=== PATIENT | male | born 1995 | race Caucasian/White ===

== ENCOUNTER → 2019-02-10 11:06 | Outpatient (CLI) | payer OTHER, SELFPAY ==
--- NOTE | 2019-02-10 11:11 | DI.RAD.S_ITS ---
PROCEDURE: XR THORACIC SPINE 3V INDICATIONS: pain to lower thoracic/upper lumbar, r/o bony abnormality TECHNIQUE: 3 views of the thoracic spine were acquired. COMPARISON: None. FINDINGS: Bones: No fractures or dislocations. No suspicious bony lesions. 12 pairs of ribs are noted, and appear intact where visualized. Soft tissues: No paravertebral stripe thickening. IMPRESSION: No fracture. No osseous lesion. If symptoms and/or clinical suspicion for pathology persists, evaluation with MRI may be helpful for further assessment. Dictated by: Shannon Vasquez MD, PhD on 02/10/2019 at 11:50 Approved by: Shannon Vasquez MD, PhD on 02/10/2019 at 11:50
--- NOTE | 2019-02-10 11:11 | DI.RAD.S_ITS ---
PROCEDURE: XR LUMBAR SPINE 2-3V INDICATIONS: pain to lower thoracic/upper lumbar, r/o bony abnormality TECHNIQUE: 2 views of the lumbar spine were acquired. COMPARISON: None. FINDINGS: Bones: 5 [id number] vertebrae are present. There is normal bony alignment. There is approximately 14? of convex left lumbar spine scoliosis. No vertebral body compression fractures. No suspicious bony lesions. Soft tissues: Overlying bowel gas pattern is normal. No suspicious soft tissue calcifications. IMPRESSION: Convex left scoliosis. Dictated by: Shannon Vasquez MD, PhD on 02/10/2019 at 11:50 Approved by: Shannon Vasquez MD, PhD on 02/10/2019 at 11:51
[2019-02-10 12:41] LABS: Alanine Aminotransferase 18 IU/L (<50); Albumin 4.9 g/dL (3.5-5.0); Albumin Globulin Ratio 1.7 (1.0-2.8); Alkaline Phosphatase 71 U/L (38-126); Aspartate Aminotransferase 34 IU/L (17-59); BUN Creatinine Ratio 13.8 (6-22); Bilirubin Total 0.5 mg/dL (0.2-1.3); Blood Urea Nitrogen 11 mg/dL (9-20); Calcium 9.6 mg/dL (8.4-10.2); Carbon Dioxide 28 mmol/L (22-32); Chloride 105 mmol/L (98-107); Estimated Glomerular Filt Rate > 60.0 mL/min (>60); Globulin 2.9 g/dL (1.7-4.1); Glucose 95 mg/dL (70-100); HEMOLYSIS < 15 (0-50); Potassium 4.2 mmol/L (3.4-5.1); Sodium 141 mmol/L (137-145); Total Protein 7.8 g/dL (6.3-8.2)
[2019-02-10 13:04] LABS: Urine N gonorrhoeae NOT DETECTED
[2019-02-10 13:12] LABS: Urine Chlamydia NOT DETECTED
== END ==
PROVIDERS: Visit Provider Physician Assistant
DX: M54.6 Pain in thoracic spine (principal); M54.5 Low back pain; M41.86 Other forms of scoliosis, lumbar region; I10 Essential (primary) hypertension; R30.0 Dysuria
CPT/HCPCS: 36415; 72072; 72100; 80053; 87491; 87591

== ENCOUNTER 2019-05-19 09:52 | Emergency (ER) | payer OTHER, SELFPAY ==
[2019-05-19 10:00] VITALS: BMI 25.0
--- NOTE | 2019-05-19 10:10 | DI.RAD.S_ITS ---
PROCEDURE: XR CHEST 2V INDICATIONS: sharp chest pain TECHNIQUE: 2 views of the chest were acquired. COMPARISON: None. FINDINGS: Surgical changes and devices: None. Lungs and pleura: Lungs are clear. No pleural effusions or pneumothorax. Mediastinum: Mediastinal contours are normal. Heart size is normal. Bones and chest wall: No suspicious bony abnormalities. Soft tissues appear unremarkable. IMPRESSION: No acute cardiopulmonary pathology. Dictated by: Gerardo Julian M.D. on 05/19/2019 at 10:44 Approved by: Gerardo Julian M.D. on 05/19/2019 at 10:45
[2019-05-19 11:08] LABS: Add Manual Diff / Slide Review NO; Basophils Absolute Auto 0 /uL (0-100); Basophils Percent Auto 0.9 % (0-2); Eosinophils Absolute Auto 300 /uL (0-450); Eosinophils Percent Auto 7.1 % (2-4); Hemoglobin 16.2 g/dL (13.5-17.5); Lymphocytes Absolute Auto 1600 /uL (1100-4500); Lymphocytes Percent Auto 33.6 % (25-40); Mean Corpuscular HGB Conc 34.5 % (30-36); Mean Corpuscular Hemoglobin 30.5 PG (26-34); Mean Corpuscular Volume 88.4 fL (80-100); Monocytes Absolute Auto 400 /uL (0-900); Monocytes Percent Auto 9.2 % (3-14); Neutrophils Absolute Auto 2400 /uL (1500-7000); Neutrophils Percent Auto 49.2 % (50-75); Platelet Count 202 X10^3/uL (150-400); Red Blood Cell Count 5.32 X10^6/uL (4.5-5.9); Red Cell Distribution Width 12.5 % (11.6-14.8); White Blood Cell Count 4.9 X10^3/uL (4.5-11.0)
[2019-05-19 11:20] LABS: Creatine Kinase 79 U/L (55-170)
[2019-05-19 11:24] LABS: BUN Creatinine Ratio 16.3 (6-22); Blood Urea Nitrogen 13 mg/dL (9-20); Calcium 10.2 mg/dL (8.4-10.2); Carbon Dioxide 27 mmol/L (22-32); Chloride 103 mmol/L (98-107); Estimated Glomerular Filt Rate > 60.0 mL/min (>60); Glucose 98 mg/dL (70-100); HEMOLYSIS 16 (0-50); Potassium 4.7 mmol/L (3.4-5.1); Sodium 141 mmol/L (137-145)
[2019-05-19 11:25] LABS: Erythrocyte Sedimentation Rate 1 MM/HR (0-15)
[2019-05-19 11:26] LABS: C-Reactive Protein Quant < 0.5 mg/dL (<1.0)
[2019-05-19 11:30] VITALS: BP 120/70; PULSE 87; RESP 18; O2SAT 97
[2019-05-19 11:32] LABS: Troponin I < 0.012 ng/mL (0.01-0.034)
--- NOTE | 2019-05-19 18:31 | ED_ITS ---
HPI - Chest Pain General Chief Complaint: Chest Pain Stated Complaint: woke up with sharp chest pain Time Seen by Provider: 05/19/19 10:07 Source: patient Mode of arrival: Ambulatory Limitations: no limitations History of Present Illness HPI narrative: 24-year-old male daily smoker with history of hypertension prese nts with a chief complaint of waking to some episodes of very brief left-sided sharp and stabbing chest pain that last about 10 seconds and go away without any palliation. Patient denies any runny nose, sore throat or cough. He denies any shortness of breath. He denies any exertional exacerbation or other symptoms such as dizziness, weakness, lightheadedness, nausea, vomiting or diaphoresis. He denies any recent travel or history of blood clot. He is currently pain-free MD complaint: chest pain Onset (ago): hour(s) Duration: intermittent Onset: during rest Pain location: left chest Severity: mild Quality: sharp Pain radiation: none Relieving factors: nothing Exacerbating factors: nothing Treatments prior to arrival chest pain: none Related Data Home Medications Medication Instructions Recorded Confirmed ramipril 2.5 mg PO DAILY 05/19/19 Allergies Allergy/AdvReac Type Severity Reaction Status Date / Time acetaminophen [From Vicodin] AdvReac Intermediate nausea and Verified 05/19/19 10:00 vomiting hydrocodone [From Vicodin] AdvReac Intermediate nausea and Verified 05/19/19 10:00 vomiting Review of Systems Constitutional Constitutional: Denies chills, Denies fatigue, Denies fever(s), Denies frequent falls, Denies lethargy and Denies weakness Eyes Eyes: Denies change in vision, Denies eye discharge, Denies irritation and Denies loss of vision ENT Ears, Nose, Mouth, and Throat: Denies change in voice, Denies dizziness, Denies neck pain, Denies sore throat and Denies throat swelling Cardiovascular Cardiovascular: Reports chest pain, Denies irregular heart rhythm, Denies lightheadedness, Denies palpitations, Denies dyspnea, Denies dyspnea on exertion and Denies orthopnea Respiratory Respiratory: Denies cough, Denies dyspnea, Denies dyspnea on exertion and Denies wheezing Gastrointestinal Gastrointestinal: Denies abdominal pain, Denies change in bowel habits, Denies diarrhea, Denies nausea and Denies vomiting Genitourinary Genitourinary: Denies hematuria, Denies flank pain, Denies urinary incontinence and Denies urinary urgency Musculoskeletal Musculoskeletal: Denies back pain, Denies muscle weakness, Denies neck pain, Denies numbness and Denies tingling Integumentary/Breasts Skin/Breast: Denies pruritus, Denies erythema, Denies rash and Denies wounds Neurologic Neurologic: Denies behavioral changes, Denies confusion, Denies dizziness, Denies frequent falls, Denies loss of vision, Denies numbness, Denies tingling and Denies weakness Psychiatric Psychiatric: Denies anxiety, Denies behavioral changes, Denies confusion, Denies depression, Denies homicidal ideation and Denies suicidal ideation Endocrine Endocrine: Denies fatigue, Denies flushing and Denies palpitations Hematologic/Lymphatic Hematologic/Lymphatic: Denies easy bruising Allergic/Immunologic Allergic/Immunologic: Denies urticaria, Denies throat swelling and Denies wheezing Patient History Social History Smoking Status: Current every day smoker Smoking Status: Current every day smoker Exam Narrative Exam Narrative: GENERAL: [24] year old patient appears stated age. Well- nourished, well-developed patient, in mild distress. HEAD: Atraumatic. Normocephalic. EYES: Pupils equal round and reactive. Extraocular motions intact. No scleral icterus. No injection or drainage. ENT: Nose without bleeding, purulent drainage. Throat without erythema, tonsillar hypertrophy or exudate. Airway patent. NECK: Trachea midline. Non tender CARDIOVASCULAR: Regular rate and rhythm without murmurs, gallops, or rubs. RESPIRATORY: Clear to auscultation. Breath sounds equal bilaterally. No wheezes, rales, or rhonchi. GASTROINTESTINAL: Abdomen soft, non-tender, nondistended. EXTREMITIES: No edema or joint tenderness. BACK: Nontender without deformity or crepitance. No flank tenderness. NEURO: AOx3. SKIN: No rash or erythema of visible areas Initial Vital Signs Initial Vital Signs: Vital Signs Pulse Rate 87 05/19/19 11:30 Respiratory Rate 18 05/19/19 11:30 Blood Pressure 120/70 05/19/19 11:30 Pulse Oximetry 97 05/19/19 11:30 Course Orders Ordered: ED Orders 05/19/19 10:04 EKG-12 Lead Routine 05/19/19 10:10 XR chest 2V Stat 05/19/19 11:00 Basic Metabolic Panel Stat C-Reactive Protein Quant Stat Complete Blood Count AUTO DIFF Stat Erythrocyte Sedimentation Rate Stat Troponin & CK Cardiac Panel Stat Vital Signs Vital signs: Vital Signs - 8 hr 05/19/19 11:30 Pulse Rate 87 Respiratory Rate 18 Blood Pressure [Right Arm] 120/70 Pulse Oximetry 97 MDM - Chest Pain Lab Data Result diagrams: 05/19/19 11:00 05/19/19 11:00 Labs: Lab Results 05/19/19 05/19/19 05/19/19 Range/Units 11:00 11:00 11:00 WBC 4.9 (4.5-11.0) X10^3/uL RBC 5.32 (4.5-5.9) X10^6/uL Hgb 16.2 (13.5-17.5) g/dL Hct 47.0 (41-53) % MCV 88.4 (80-100) fL MCH 30.5 (26-34) PG MCHC 34.5 (30-36) % RDW 12.5 (11.6-14.8) % Plt Count 202 (150-400) X10^3/uL Neut % (Auto) 49.2 L (50-75) % Lymph % (Auto) 33.6 (25-40) % Brooks % (Auto) 9.2 (3-14) % Eos % (Auto) 7.1 H (2-4) % Baso % (Auto) 0.9 (0-2) % Neut # (Auto) 2400 (5121-2097) /uL Lymph # (Auto) 1600 (7999-0436) /uL Brooks # (Auto) 400 (0-900) /uL Eos # (Auto) 300 (0-450) /uL Baso # (Auto) 0 (0-100) /uL ESR 1 (0-15) MM/HR Sodium 141 (137-145) mmol/L Potassium 4.7 (3.4-5.1) mmol/L Chloride 103 (98-107) mmol/L Carbon Dioxide 27 (22-32) mmol/L BUN 13 (9-20) mg/dL Creatinine 0.80 (0.66-1.25) mg/dL Estimated GFR > 60.0 (>60) mL/min BUN/Creatinine Ratio 16.3 (6-22) Glucose 98 (70-100) mg/dL Calcium 10.2 (8.4-10.2) mg/dL Total Creatine Kinase 79 (55-170) U/L CK-MB (CK-2) TNP CK-MB (CK-2) Rel Index TNP Troponin I < 0.012 (0.01-0.034) ng/mL C-Reactive Protein < 0.5 (<1.0) mg/dL Imaging Data Chest x-ray: Radiologist's Impression: [address] [address] XRay Report Signed Patient: Dk Rabago JMR#: [id number] : 1995Acct:[id number] Age/Sex: te of Service: 05/19/19 Loc: ED Accession Number: [id number] Procedure: XR chest 2V Ordering Provider: Billy Negrete D.O. PROCEDURE: XR CHEST 2V INDICATIONS: sharp chest pain TECHNIQUE: 2 views of the chest were acquired. COMPARISON: None. FINDINGS: Surgical changes and devices: None. Lungs and pleura: Lungs are clear. No pleural effusions or pneumothorax. Mediastinum: Mediastinal contours are normal. Heart size is normal. Bones and chest wall: No suspicious bony abnormalities. Soft tissues appear unremarkable. IMPRESSION: No acute cardiopulmonary pathology. Dictated by: Gerardo Julian M.D. on 05/19/2019 at 10:44 Approved by: Gerardo Julian M.D. on 05/19/2019 at 10:45 [facility] Narrative Medical decision making narrative: Multiple causes of chest pain considered including KS, PE, pneumothorax, pneumonia, aortic dissection, and pleurisy. Patient reports no radiation, no diaphoresis, no provocation with exertion, and no vomiting Discharge Plan Departure Patient Disposition: Home Clinical Impression: Atypical chest pain Discharge Date/Time: 05/19/19 12:16 Instructions: DI for Atypical Chest Pain Activity Restrictions/Additional Instructions: *You have been diagnosed with [atypical chest pain] *What to do: *Take medications as directed *Follow up with your primary care provider in 2-3 days, call for an appointment. Let them know you were seen in the Emergency Department and that we ask that you be seen in follow up *Return to ER if you should have any new, worsening or concerning symptoms Prescriptions: No Action ramipril 2.5 mg capsule 2.5 mg PO DAILY RF: 0
== END 2019-05-19 12:16 | disposition home or self-care (01) ==
PROVIDERS: Emergency Provider Emergency Medicine
DX: R07.89 Other chest pain (principal)
CPT/HCPCS: 36415; 71046; 80048; 82550; 84484; 85025; 85651; 86140; 93005; 99284; 99285

== ENCOUNTER → 2020-06-13 09:54 | Outpatient (CLI) | payer OTHER, SELFPAY ==
[2020-06-13 10:22] LABS: COVID19 -Nasal RAPID Negative (Negative)
== END ==
PROVIDERS: Visit Provider Student in an Organized Health Care Education/Training Program
DX: Z20.822 Contact with and (suspected) exposure to COVID-19 (principal)
CPT/HCPCS: 87635

== ENCOUNTER → 2020-11-06 18:20 | Outpatient (CLI) | payer OTHER, SELFPAY ==
[2020-11-06 18:55] LABS: COVID19 -Nasal RAPID Negative (Negative)
== END ==
PROVIDERS: Visit Provider Physician Assistant
DX: Z20.822 Contact with and (suspected) exposure to COVID-19 (principal); R05 Cough; R51.9 Headache, unspecified
CPT/HCPCS: 87635

== ENCOUNTER 2024-12-20 11:17 | Emergency (ER) | payer OTHER, SELFPAY ==
[2024-12-20 11:40] VITALS: BP 170/83; PULSE 90; RESP 16; TEMP 37.3; O2SAT 98; BMI 29.5
--- NOTE | 2024-12-20 12:33 | ED.SKABFB ---
HPI - Skin/Abscess/Foreign Bdy General Chief complaint: Skin/Abscess/Foreign Body Stated complaint: wic, poss hernia,gi pain,burping Time Seen by Provider: 12/20/24 11:45 Source: patient Mode of arrival: Ambulatory Limitations: no limitations History of Present Illness HPI narrative: Patient complains of periumbilical pain, possible hernia. Sent here from walk-in clinic. A week ago he was trying to do a lift of 400 lb and felt pain in his periumbilical area. However recently he was trying to move some washing machines and felt the umbilical area get larger. No prior history of abdominal surgical history no prior history of hernias. Patient states he exercises and does lifts routinely but however last week he did not use a weight belt Related Data Home Medications ?Medication ?Instructions ?Recorded ?Confirmed escitalopram oxalate 10 mg tablet 10 mg PO DAILY 12/20/24 12/20/24 (Lexapro) ramipril 2.5 mg capsule 5 mg PO DAILY 12/20/24 12/20/24 Allergies Allergy/AdvReac Type Severity Reaction Status Date / Time acetaminophen (From Vicodin) AdvReac Intermediate nausea and Verified 12/20/24 11:04 vomiting hydrocodone (From Vicodin) AdvReac Intermediate nausea and Verified 12/20/24 11:04 vomiting Review of Systems Review of Systems Narrative: GENERAL: Negative chills, fatigue, malaise, fever, sweats. HEENT: Negative sinus pain, ear pain, sore throat RESPIRATORY: Negative dyspnea, cough CARDIOVASCULAR: Negative chest pain, palpitations GASTROINTESTINAL: Negative vomiting, nausea, positive abdominal pain : Negative dysuria, frequency, hematuria MUSCULOSKELETAL: Negative muscle or bony pain SKIN: Negative rash, skin lesions NEUROLOGIC: Negative weakness, numbness ROS Unobtainable: All systems reviewed & are unremarkable except as noted in HPI and below Patient History Social History Smoking Status: Former smoker Smoking Status: Former smoker Exam Narrative Exam Narrative: GENERAL: in no distress, not toxic not dyspneic HEAD: Normocephalic. EYES: Pupils equal round ENT: Mucous membranes moist. NECK: Trachea midline. CARDIOVASCULAR: Regular rate and rhythm RESPIRATORY: Clear to auscultation. Breath sounds equal bilaterally. No wheezes, rales, or rhonchi. GASTROINTESTINAL: Abdomen soft, mild periumbilical tenderness but no palpable hernia on sitting up from supine position. No skin discoloration. Bowel sounds are present. No peritoneal signs no guarding or rebound. EXTREMITIES: No gross deformities. BACK: No flank tenderness. NEURO: AOx4. Clear speech SKIN: Warm and dry PSYCH: Not anxious, is cooperative Initial Vital Signs Initial Vital Signs: Vital Signs Temperature 99.1 F 12/20/24 11:40 Pulse Rate 90 12/20/24 11:40 Respiratory Rate 16 12/20/24 11:40 Blood Pressure 170/83 H 12/20/24 11:40 Pulse Oximetry 98 12/20/24 11:40 Oxygen Delivery Method Room Air 12/20/24 11:40 Course Orders Ordered: ED Orders 12/20/24 12:42 CT abdomen pelvis w con Stat 12/20/24 13:45 Complete Blood Count AUTO DIFF Stat Comprehensive Metabolic Panel Stat Discontinued Medications Sodium Chloride (Normal Saline 0.9%) 500 mls @ 1,000 mls/hr IV BOLUS ONE Stop: 12/20/24 13:11 Last Infusion: 12/20/24 14:02 Dose: Infused Documented By: Admin: 12/20/24 13:16 Dose: 1,000 mls/hr Documented By: BETSY Ketorolac Tromethamine (Ketorolac 30 Mg/Ml Vial) 15 mg IV NOW ONE Stop: 12/20/24 12:43 Last Admin: 12/20/24 13:16 Dose: 15 mg Documented By: BETSY Vital Signs Vital signs: Vital Signs - 8 hr 12/20/24 13:13 12/20/24 13:15 12/20/24 13:15 Pulse Rate 78 74 Blood Pressure 140/90 Pulse Oximetry 97 98 12/20/24 13:30 12/20/24 13:30 12/20/24 14:00 Pulse Rate 69 Blood Pressure 130/68 126/75 Pulse Oximetry 98 12/20/24 14:00 Pulse Rate 65 Blood Pressure Pulse Oximetry 98 MDM - Skin/Abscess/Foreign Bdy Lab Data 12/20/24 13:45 12/20/24 13:45 Labs: Lab Results 12/20/24 Range/Units 13:45 WBC 5.3 (4.5-11.0) X10^3/uL RBC 5.03 (4.5-5.9) X10^6/uL Hgb 15.0 (13.5-17.5) g/dL Hct 43.3 (41-53) % MCV 86.0 (80-100) fL MCH 29.8 (26-34) PG MCHC 34.6 (30-36) % RDW 13.1 (11.6-14.8) % Plt Count 199 (150-400) X10^3/uL Neut % (Auto) 47.8 L (50-75) % Lymph % (Auto) 35.9 (25-40) % Angelina % (Auto) 8.9 (3-14) % Eos % (Auto) 6.5 H (2-4) % Baso % (Auto) 0.9 (0-2) % Neut # (Auto) 2500 (9089-2056) /uL Lymph # (Auto) 1900 (0110-5132) /uL Angelina # (Auto) 500 (0-900) /uL Eos # (Auto) 300 (0-450) /uL Baso # (Auto) 0 (0-100) /uL Sodium 138 (137-145) mmol/L Potassium 3.9 (3.4-5.1) mmol/L Chloride 107 (98-107) mmol/L Carbon Dioxide 22 (22-32) mmol/L BUN 12 (9-20) mg/dL Creatinine 0.81 (0.66-1.25) mg/dL Estimated GFR > 60 (>60) mL/min BUN/Creatinine Ratio 14.8 (6-22) Glucose 93 (70-99) mg/dL Calcium 8.4 (8.4-10.2) mg/dL Total Bilirubin 0.3 (0.2-1.3) mg/dL AST 31 (17-59) IU/L ALT 20 (<50) IU/L Alkaline Phosphatase 76 (38-126) U/L Total Protein 6.8 (6.3-8.2) g/dL Albumin 4.1 (3.5-5.0) g/dL Globulin 2.7 (1.7-4.1) g/dL Albumin/Globulin Ratio 1.5 (1.0-2.8) Imaging Data CT scan - abdomen/pelvis: Radiologist's Impression: [address] [address] [address] Scan Report Signed Patient: Dk Rabago MR#: [id number] : 1995 Acct:[id number] Age/Sex: 29 / M Date of Service: 12/20/24 Loc: ED Accession Number: [id number] Procedure: CT abdomen pelvis w con Ordering Provider: Gibson Victoria MD PROCEDURE: CT ABDOMEN PELVIS W CON INDICATIONS: Periumbilical pain TECHNIQUE: After the administration of intravenous contrast, axial sections acquired from the lung bases to the pubic symphysis. Coronal and sagittal reformats were performed. For radiation dose reduction, the following was used: automated exposure control, adjustment of mA and/or kV according to patient size. COMPARISON: None. FINDINGS: Image quality: Diagnostic. Lower Chest: No significant findings. ABDOMEN: Liver: No solid mass. Occasional benign-appearing subcentimeter hypodensities. Gallbladder: Decompressed. No calcifications. Biliary ducts: No biliary dilation. Pancreas: Normal size and morphology without visible ductal dilatation or inflammation. Spleen: Size is within normal limits. Adrenal Glands: No adrenal nodules. Kidneys and Ureters: Symmetric enhancement. No nephrolithiasis or hydronephrosis. No visible mass or cyst requiring follow up. No hydroureter. Stomach and Bowel: Stomach and small bowel loops are normal caliber. Normal appendix. Normal quantity of colonic stool. No suspicious colon wall thickening or inflammation. Peritoneum: No abnormal intraperitoneal fluid. No free air. Ventral Wall: There is a tiny, narrow necked umbilical hernia as well as a small fat containing supraumbilical hernia. No induration of fat or surrounding inflammation. No herniated fluid or bowel. Abdominal Nodes: No retroperitoneal or mesenteric adenopathy by size criteria. Vessels: Aorta and inferior vena cava are normal in size. PELVIS: Pelvic Organs: Unremarkable. Bladder: No bladder wall thickening, accounting for underdistention. Pelvic Nodes: No enlarged lymph nodes. Miscellaneous: No inguinal hernias are seen. Bones: No aggressive osseous abnormality. IMPRESSION: Tiny fat containing umbilical and supraumbilical hernias. No CT signs of inflammation. Dictated by: Cesilia Hart M.D. on 12/20/2024 at 13:31 Approved by: Cesilia Hart M.D. on 12/20/2024 at 13:37 [facility] Narrative Medical decision making narrative: Patient complains of periumbilical pain, possible hernia. Sent here from walk-in clinic. A week ago he was trying to do a lift of 400 lb and felt pain in his periumbilical area. However recently he was trying to move some washing machines and felt the umbilical area get larger. No prior history of abdominal surgical history no prior history of hernias. Patient states he exercises and does lifts routinely but however last week he did not use a weight belt MDM After history and exam, CBC CMP CT abdomen pelvis Toradol normal saline Differential considered: Includes but not limited to abdominal wall strain umbilical hernia Medical records reviewed: No recent visit for this complaint Lab Test results independently reviewed as above. Pertinent findings: WBC 5.3 hemoglobin 15 Imaging studies independently reviewed: CT abdomen pelvis fat containing small periumbilical and umbilical hernia Consultations: None indicated at this time. Re-evaluations: 2:07 p.m.. Patient feels much better after Toradol. Reviewed results and exam with patient. Work note for 2 days provided and then light duty work for 1 week. Referral for General surgery provided. Return precautions reviewed. Informed patient to not do gym exercises/heavy lifting. Until seen by provider. Discussion: Appropriate for discharge home exam is reassuring. No incarcerated or strangulated hernia. Exam is reassuring. Return precautions reviewed. IV contrast use for CT imaging. Patient desires discharge home Diagnosis: Umbilical hernia Discharge Plan Departure Patient Disposition: Home Clinical Impression: Hernia, umbilical Qualifiers: Obstruction and gangrene presence: without obstruction or gangrene Qualified Code(s): K42.9 - Umbilical hernia without obstruction or gangrene Instructions: DI for Hernia Repair, DI for Ventral Hernia Activity Restrictions/Additional Instructions: Your exam and laboratory studies and imaging studies are reassuring. You do have small fat containing hernias. Please call Dr. Fields office for follow up for further treatment and evaluation. Work note has been provided for you and light duty work for 1 week. No heavy lifting/gym exercise to put stress on your abdominal wall and hernia. Keep well hydrated. Return if worse if any questions or concerns Prescriptions: No Action escitalopram oxalate [Lexapro] 10 mg tablet 10 mg PO DAILY ramipril 2.5 mg capsule 5 mg PO DAILY Referrals: Willy Fields MD [Physician, General Surgery] Miscellaneous,MD Alejandro [Primary Care Provider, Medical] Stand Alone Forms: Patient Portal/API, Work Release Note
--- NOTE | 2024-12-20 12:42 | DI.CT.S_ITS ---
PROCEDURE: CT ABDOMEN PELVIS W CON INDICATIONS: Periumbilical pain TECHNIQUE: After the administration of intravenous contrast, axial sections acquired from the lung bases to the pubic symphysis. Coronal and sagittal reformats were performed. For radiation dose reduction, the following was used: automated exposure control, adjustment of mA and/or kV according to patient size. COMPARISON: None. FINDINGS: Image quality: Diagnostic. Lower Chest: No significant findings. ABDOMEN: Liver: No solid mass. Occasional benign-appearing subcentimeter hypodensities. Gallbladder: Decompressed. No calcifications. Biliary ducts: No biliary dilation. Pancreas: Normal size and morphology without visible ductal dilatation or inflammation. Spleen: Size is within normal limits. Adrenal Glands: No adrenal nodules. Kidneys and Ureters: Symmetric enhancement. No nephrolithiasis or hydronephrosis. No visible mass or cyst requiring follow up. No hydroureter. Stomach and Bowel: Stomach and small bowel loops are normal caliber. Normal appendix. Normal quantity of colonic stool. No suspicious colon wall thickening or inflammation. Peritoneum: No abnormal intraperitoneal fluid. No free air. Ventral Wall: There is a tiny, narrow necked umbilical hernia as well as a small fat containing supraumbilical hernia. No induration of fat or surrounding inflammation. No herniated fluid or bowel. Abdominal Nodes: No retroperitoneal or mesenteric adenopathy by size criteria. Vessels: Aorta and inferior vena cava are normal in size. PELVIS: Pelvic Organs: Unremarkable. Bladder: No bladder wall thickening, accounting for underdistention. Pelvic Nodes: No enlarged lymph nodes. Miscellaneous: No inguinal hernias are seen. Bones: No aggressive osseous abnormality. IMPRESSION: Tiny fat containing umbilical and supraumbilical hernias. No CT signs of inflammation. Dictated by: Cesilia Hart M.D. on 12/20/2024 at 13:31 Approved by: Cesilia Hart M.D. on 12/20/2024 at 13:37
[2024-12-20 13:13] VITALS: PULSE 78; O2SAT 97
[2024-12-20 13:15] VITALS: BP 140/90; PULSE 74; O2SAT 98
[2024-12-20] MEDS: SODIUM CHLORIDE 0.9% 500 ML 1000 ML IV (13:16)
[2024-12-20] MEDS: KETOROLAC 30 MG/ML VIAL 15 MG IV (13:16)
[2024-12-20 13:30] VITALS: BP 130/68; PULSE 69; O2SAT 98
[2024-12-20 13:53] LABS: Add Manual Diff / Slide Review NO; Hematocrit 43.3 % (41-53); Hemoglobin 15.0 g/dL (13.5-17.5); Lymphocytes Absolute Auto 1900 /uL (1100-4500); Mean Corpuscular HGB Conc 34.6 % (30-36); Mean Corpuscular Hemoglobin 29.8 PG (26-34); Mean Corpuscular Volume 86.0 fL (80-100); Platelet Count 199 X10^3/uL (150-400)
[2024-12-20 14:00] VITALS: BP 126/75; PULSE 65; O2SAT 98
[2024-12-20 14:04] LABS: Alanine Aminotransferase 20 IU/L (<50); Albumin 4.1 g/dL (3.5-5.0); Albumin Globulin Ratio 1.5 (1.0-2.8); Alkaline Phosphatase 76 U/L (38-126); Blood Urea Nitrogen 12 mg/dL (9-20); Calcium 8.4 mg/dL (8.4-10.2); Carbon Dioxide 22 mmol/L (22-32); Chloride 107 mmol/L (98-107); Estimated Glomerular Filt Rate > 60 mL/min (>60); Globulin 2.7 g/dL (1.7-4.1); Glucose 93 mg/dL (70-99); HEMOLYSIS 23 (0-50); Potassium 3.9 mmol/L (3.4-5.1); Sodium 138 mmol/L (137-145); Total Protein 6.8 g/dL (6.3-8.2)
== END 2024-12-20 14:13 | disposition home or self-care (01) ==
PROVIDERS: Emergency Provider Emergency Medicine
DX: K42.9 Umbilical hernia without obstruction or gangrene (principal); Z87.891 Personal history of nicotine dependence
CPT/HCPCS: 36415; 74177; 80053; 85025; 96361; 96374; 99284; J1885; Q9967

== ENCOUNTER 2025-02-01 12:46 | Day surgery (SDC) | payer OTHER, SELFPAY ==
[2025-01-10 15:07] VITALS: BMI 29.0
[2025-02-01 13:49] VITALS: BP 153/97; PULSE 112; RESP 17; TEMP 37.1; O2SAT 99
[2025-02-01] MEDS: LACTATED RINGERS 1,000 ML 42 ML IV (13:57)
[2025-02-01] MEDS: ACETAMINOPHEN IV 1,000 MG/100 ML VIAL 400 MG IV (14:48)
--- NOTE | 2025-02-01 15:31 | P.HP_ITS ---
History of Present Illness History of Present Illness Date Patient Seen: 02/01/25 Time Patient Seen: 15:31 Chief complaint: Open umbilical hernia repair w/mesh Narrative: Dk is a 29 year old man with an umbilical hernia. See the December office note for details. [facility] Social History Smoking Status: Former smoker Meds Home Medications and Allergies Home Medications ?Medication ?Instructions ?Recorded ?Confirmed ?Type escitalopram oxalate 10 mg tablet 10 mg PO DAILY 12/2002/01/25 History (Lexapro) ramipril 2.5 mg capsule 5 mg PO DAILY 12/20/2402/01 History Allergies Allergy/AdvReac Type Severity Reaction Status Date / Time hydrocodone (From Vicodin) AdvReac Intermediate nausea and Verified 02/01/25 13:46 vomiting Exam Vital Signs (past 8 hours): - 02/01/25 13:49 Temperature 98.8 F Pulse Rate 112 H Respiratory Rate 17 Blood Pressure 153/97 H Pulse Oximetry 99 Oxygen Delivery Method Room Air Oxygen Delivery Method Room Air Const General: healthy appearing Assessment & Plan Assessment and plan (1) Hernia, umbilical: Qualifiers: Obstruction and gangrene presence: without obstruction or gangrene Qualified Code(s): K42.9 - Umbilical hernia without obstruction or gangrene Status: Inactive Plan Open umbilical hernia repair with mesh Time-Based Coding :: [TOTAL MINUTES] spent with patient and on the chart (including review of chart, obtaining history, exam, reviewing outside data, placing orders, documenting exam and treatment plan, and counseling patient) on [DATE]. 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
--- NOTE | 2025-02-01 16:10 | SUR.OPER ---
Supine on padded OR bed, head on pillow, arms secured on padded arm boards at <90 degrees abduction, legs uncrossed, safety belt at thigh, tape over blanket over lower legs. All pressure points padded and protected.
[2025-02-01] MEDS: BUPivacaine 0.25% W/ EPI (PF) 30 ML VIAL INJ (16:23)
--- NOTE | 2025-02-01 16:28 | PM.OP.1 ---
Operative Date/Time/Diagnoses Date of procedure: 02/01/25 Time of procedure: 16:28 Pre-op diagnosis: Umbilical hernia Post-op diagnosis: same Procedure & Clinicians Procedure: Open umbilical hernia repair with mesh Same procedure(s) as scheduled: Yes Surgeon: Willy Fields Assisted?: Yes Jig Bore Tool Maker: Marty Wing Anesthesia Type: General Operative Notes Findings: Small umbilical hernia small epigastric hernia Applied: none Estimated Blood Loss (mL): 5 Procedure in detail: Ancef was administered. The patient was brought to the operating room, placed on the table in the supine position and general endotracheal anesthesia was induced. The abdomen was prepped and draped in the usual fashion. A time-out was performed. A 5 cm curvilinear incision was made inferior to the umbilicus. There was a subcentimeter umbilical hernia containing fat. There was also possible subsequent mm epigastric hernia containing bladder about 5 mm this has superior to the umbilical defect. The epigastric defect was closed with a single 0 Ethibond stitch. The umbilical defect was closed with 2 interrupted 0 Ethibond sutures. The subcutaneous adipose tissue was cleared off of the anterior sheath circumferentially about 2 cm in each direction. A piece of polypropylene mesh was trimmed to fit over the fascial closure and secured with fibrin glue. Once the fibrin glue was dried the skin was closed with multiple interrupted 3-0 Vicryl dermal sutures followed by a running 4 Monocryl subcuticular closure. Steri-Strips were applied and an abdominal binder was applied. Complications: none Post-operative Condition: stable Disposition: PACU
[2025-02-01 16:46] VITALS: BP 140/79; PULSE 94; RESP 16; TEMP 36.5; O2SAT 99
[2025-02-01 16:51] VITALS: BP 137/79; PULSE 96; RESP 15; TEMP 36.5; O2SAT 99
[2025-02-01 17:06] VITALS: BP 138/81; PULSE 89; RESP 18; TEMP 36.4; O2SAT 99
== END 2025-02-01 17:11 | disposition home or self-care (01) ==
PROVIDERS: PCP Student in an Organized Health Care Education/Training Program; Referring Provider Surgery; Visit Provider Surgery
PROC: (CPT 49591; principal; 2025-02-01 15:15)
DX: K42.9 Umbilical hernia without obstruction or gangrene (principal); K43.9 Ventral hernia without obstruction or gangrene; I10 Essential (primary) hypertension; M41.9 Scoliosis, unspecified; F41.9 Anxiety disorder, unspecified; Z87.891 Personal history of nicotine dependence
CPT/HCPCS: 49591; C1781; C9250; J0131; J0689; J1100; J1885; J2405; J2704; J3010; J7120